=== PATIENT | female | born 1985 | race Caucasian/White ===

== ENCOUNTER → 2017-04-06 | Outpatient (CLI) | payer OTHER ==
[~2017-04-06] MED LIST: CLEOCIN HC150 MG/CAP PO; MAKENA250 MG/ML IM; MOTRIN 600600 MG/TAB PO; NORCO 325 MG-51 TAB PO; PERCOCET 325 MG1 TA2 PO; ZANTAC 150MG T150 MG PO; ZOFRAN 4MG T4 MG/TAB PO; [UNRECOGNIZED DRUG - OTHER] IM
== END ==
LOC: COL.RAD 14:34
DX: M25.512 Pain in left shoulder (principal)